=== PATIENT | female | born 1995 | race Hispanic/Latino ===

== ENCOUNTER 2020-11-07 22:07 | Observation (INO) | payer MEDICAID ==
[~2020-11-07] VITALS: Ht 157.5 cm; Wt 98.9 kg
[2020-11-07 22:42] LABS: APPEARANCE,URINE Clear (CLEAR); BILIRUBIN,URINE Negative (NEGATIVE); COLOR,URINE Yellow (YELLOW); GLUCOSE, URINE (UA) Negative (NEGATIVE); KETONES,URINE Negative (NEGATIVE); LEUKOCYTE ESTERASE ,URINE Large (NEGATIVE); NITRATE,URINE Negative (NEGATIVE); OCCULT BLOOD,URINE Trace (NEGATIVE); PH,URINE 6.5 (5.0-8.0); PROTEIN,URINE Negative (NEGATIVE); UROBILINOGEN,URINE 0.2 mg/dL (0.2-1.0)
[2020-11-07 22:54] LABS: BACTERIA,URINE Few /HPF (None Seen); RBC,URINE 0-1 /HPF (0-1)
[2020-11-08] MEDS: LACTATED RINGERS 1000ML 1,000 ML IV SCH ×2 (05:30→07:00)
[2020-11-08 05:32] VITALS: BP 106/60
== END 2020-11-08 09:55 | disposition home or self-care (01) ==
LOC: EDH 22:07 → LDH 22:18
PROVIDERS: ADMIT Obstetrics & Gynecology; ATTEND Obstetrics & Gynecology
DX: O47.1 False labor at or after 37 completed weeks of gestation (principal); Z3A.37 37 weeks gestation of pregnancy; Z88.0 Allergy status to penicillin
CPT/HCPCS: 59025; 81001; 87088; 96360; 96361 ×2; 99284; G0378 ×12; J7120 ×2